=== PATIENT | female | born 1960 | race Caucasian/White ===

== ENCOUNTER 2023-11-05 18:28 | Emergency (ER) | payer MEDICAID ==
[~2023-11-05] VITALS: Ht 154.9 cm; Wt 54.4 kg
[2023-11-05 18:55] VITALS: BP 117/71; PULSE 83; RESP 18; TEMP 98.1; O2SAT 99
[2023-11-05 20:37] LABS: BASOPHILS % (AUTO) 0.6 % (0.0-2.0); EOSINOPHILS % (AUTO) 0.2 % (0.0-4.0); HEMATOCRIT 40.4 % (36-48); HEMOGLOBIN 13.6 g/dL (12.0-16.0); LYMPHOCYTES # (AUTO) 1.1 K/uL (2.5-16.5); LYMPHOCYTES % (AUTO) 13.8 % (20.5-51.1); MEAN CORPUSCULAR HEMOGLOBIN 30 pg (27-31); MEAN CORPUSCULAR HGB CONC 34 g/dL (33-37); MEAN CORPUSCULAR VOLUME 90.5 fL (80-94); NEUTROPHILS # (AUTO) 5.6 K/uL (1.8-7.7); NEUTROPHILS % (AUTO) 72.4 % (42.2-75.2); PLATELET COUNT (AUTO) 248 K/uL (140-450); RED BLOOD CELL COUNT(AUTO) 4.47 MIL/uL (4.20-5.40); RED CELL DISTRIBUTION WIDTH 12.9 % (11.6-13.7); WHITE BLOOD COUNT (AUTO) 7.8 K/uL (4.8-10.8)
[2023-11-05 20:45] LABS: ANION GAP 12.4 (8-16); CALCIUM 8.7 mg/dL (8.5-10.1); CARBON DIOXIDE 24.4 mmol/L (21-32); CREATININE 0.8 mg/dL (0.6-1.3); POTASSIUM 3.8 mmol/L (3.5-5.1)
[2023-11-05 21:10] LABS: FLU A ANTIGEN negative (NEGATIVE); FLU B ANTIGEN NEGATIVE (NEGATIVE)
[2023-11-05] MEDS: NACL 0.9% 1,000 ML IV ONE (21:18)
[2023-11-05 22:34] VITALS: BP 107/55; PULSE 67; RESP 16; TEMP 98.3; O2SAT 97
== END 2023-11-05 22:34 | disposition home or self-care (01) ==
LOC: MED 18:28
DX: S00.03XA Contusion of scalp, initial encounter (principal); U07.1 COVID-19; R55 Syncope and collapse; E86.0 Dehydration; W18.39XA Other fall on same level, initial encounter; Y92.009 Unspecified place in unspecified non-institutional (private) residence as the place of occurrence of the external cause; Y93.89 Activity, other specified; Y99.8 Other external cause status
CPT/HCPCS: 36415; 70450; 72125; 80048; 82948; 83880; 84484; 85025; 85379; 87426; 87804; 93005; 96360; 99284; J7030